=== PATIENT | male | born 1960 | race Asian ===

== ENCOUNTER 2019-05-27 17:43 | Emergency (ER) | payer BC, OTHER ==
[2019-05-27 17:51] VITALS: BP 136/87; PULSE 86; TEMP 97.7; BMI 32.1
--- NOTE | 2019-05-27 17:51 | PDOC ---
Rapid Medical Evaluation Time Seen by Provider: 05/27/19 17:46 Medical Evaluation: Allergies Allergy/AdvReac Type Severity Reaction Status Date / Time No Known Allergies Allergy Verified 07/04/13 18:29 05/27/19 17:49 I have performed a brief in-person evaluation of this patient. The patient presents with a chief complaint of: Pt is a 58 y/o male with L calf pain and swelling since yesterday. Pt travelled 15 hours yesterday on the plane. Saw his primary and was advised to come to the ED for a doppler. The patient has a history of DM, cardiac disease with previous [place] 10 years ago and is on ASA but no other anticoagulation. Pertinent physical exam findings: stable. Mild left calf tenderness to p alpation. Unable to palpate pulses in triage. Warm skin distally. Brisk capillary refill distally. I have ordered the following: Duplex LLE ordered The patient will proceed to the ED for further evaluation Discharge Disposition - Diagnosis Pain of left calf - Referrals - Patient Instructions - Post Discharge Activity
--- NOTE | 2019-05-27 19:47 | PDOC ---
History of Present Illness - General Chief Complaint: Edema Stated Complaint: SWOLLEN LEG Time Seen by Provider: 05/27/19 17:46 History Source: Patient Exam Limitations: No Limitations Past History - Travel Traveled outside of the country in the last 30 days: No Close contact w/someone who was outside of country & ill: No - Past Medical History Allergies/Adverse Reactions: Allergies Allergy/AdvReac Type Severity Reaction Status Date / Time No Known Allergies Allergy Verified 07/04/13 18:29 Home Medications: Ambulatory Orders Aspirin [ASA -] 81 mg PO DAILY 07/04/13 Glipizide mg PO DAILY 07/04/13 Losartan Potassium [Cozaar] mg PO DAILY 07/04/13 Metoprolol Tartrate [Lopressor -] 25 mg PO DAILY 07/04/13 Pravastatin Sodium [Pravachol -] mg PO HS 07/04/13 levoFLOXacin [Levaquin -] 750 mg PO DAILY #7 tablet 07/04/13 metFORMIN HCL [Glucophage -] 1,000 mg PO BID 07/04/13 COPD: No Diabetes: Yes HTN: Yes - Immunization History Immunization Up to Date: No - Psycho Social/Smoking Cessation Hx Smoking History: Never smoked Have you smoked in the past 12 months: No Information on smoking cessation initiated: No Hx Alcohol Use: No Drug/Substance Use Hx: No Substance Use Type: None Review of Systems - Review of Systems Able to Perform ROS?: Yes Comments:: 05/27/19 19:40 CONSTITUTIONAL: Absent: fever, chills, diaphoresis, generalized weakness, malaise, loss of appetite HEENT: Absent: rhinorrhea, nasal congestion, throat pain, throat swelling, difficulty swallowing, mouth swelling, ear pain, eye pain, visual Changes CARDIOVASCULAR: Absent: chest pain, loss of consciousness, palpitations, irregular heart rate, peripheral edema RESPIRATORY: Absent: cough, shortness of breath, dyspnea with exertion, orthopnea, wheezing, stridor, hemoptysis GASTROINTESTINAL: Absent: abdominal pain, abdominal distension, nausea, vomiting, diarrhea, constipation, melena, hematochezia GENITOURINARY: Absent: dysuria, frequency, urgency, hesitancy, hematuria, flank pain, genital pain MUSCULOSKELETAL: Present: Left calf pain absent: myalgia, arthralgia, joint swelling SKIN: Absent: rash, itching, pallor HEMATOLOGIC/IMMUNOLOGIC: Absent: easy bleeding, easy bruising, lymphadenopathy, frequent infections ENDOCRINE: Absent: unexplained weight gain, unexplained weight loss, heat intolerance, cold intolerance NEUROLOGIC: Absent: headache, focal weakness or paresthesias, dizziness, unsteady gait, seizure, mental status changes, bladder or bowel incontinence PSYCHIATRIC: Absent: anxiety, depression, suicidal or homicidal ideation, hallucinations. Is the patient limited [place] proficient: No *Physical Exam - Vital Signs Last Vital Signs Temp Pulse Resp BP Pulse Ox 97.7 F 86 16 136/87 96 05/27/19 17:49 05/27/19 17:49 05/27/19 17:49 05/27/19 17:49 05/27/19 17:49 - Physical Exam 05/27/19 19:41 GENERAL: Well developed, well nourished. Awake and alert. No acute distress. HEENT: Normocephalic, atraumatic. PERRLA, EOMI. No conjunctival pallor. Sclera are non- icteric. Moist mucous membranes. Oropharynx is clear. NECK: Supple. Full ROM. No JVD. Carotid pulses 2+ and symmetric, without bruits. No thyromegaly. No lymphadenopathy. CARDIOVASCULAR: Regular rate and rhythm. No murmurs, rubs, or gallops. Distal pulses are 2+ and symmetric. PULMONARY: No evidence of respiratory distress. Lungs clear to auscultation bilaterally. No wheezing, rales or rhonchi. ABDOMINAL: Soft. Non-tender. Non-distended. No rebound or guarding. No organomegaly. Normoactive bowel sounds. MUSCULOSKELETAL Normal range of motion at all joints. No bony deformities or tenderness. No CVA tenderness. EXTREMITIES: No cyanosis. No clubbing. (+) 1 pitting edema on the left. (+) l calf tenderness. SKIN: Warm and dry. Normal capillary refill. No rashes. No jaundice. NEUROLOGICAL: Alert, awake, appropriate. Cranial nerves 2-12 intact. No deficits to light touch and temperature in face, upper extremities and lower extremities. No motor deficits in the in face, upper extremities and lower extremities. Normoreflexic in the upper and lower extremities. Normal speech. Toes are down-going bilaterally. Gait is normal without ataxia. PSYCHIATRIC: Cooperative. Good eye contact. Appropriate mood and affect. Medical Decision Making - Medical Decision Making 05/27/19 19:41 Patient is a 58-year-old male with past medical history of CAD status post [place] with stenting 10 years ago, type 2 diabetes presents to the ER today for left calf pain. States he was on a 15-hour flight yesterday. When he came back he noticed some swelling and pain in his calf. He states it feels like a cramping sensation. He went to see his primary care doctor today who recommended he come to the ER to rule out DVT. Denies chest pain, difficulty breathing, shortness of breath, dyspnea on exertion, orthopnea. A/P: Calf pain On exam there is some mild tenderness to the left posterior calf. 1+ pitting edema to the left foot. Duplex ultrasound of the left leg shows no DVTs at this time. We will discharge home to have the patient follow-up with his primary care doctor and [employer] worker as scheduled tomorrow. Return precautions given. I discussed the physical exam findings, ancillary test results and final diagnoses with the patient. I answered all of the patient's questions. The patient was satisfied with the care received and felt comfortable with the discharge plan and treatment plan. The Patient agrees to follow up with the primary care physician/specialist within 24-72 hours. Return precautions were given. Discharge - Discharge Information Problems reviewed: Yes Clinical Impression/Diagnosis: Pain of left calf Condition: Stable - Follow up/Referral Referrals: Silvia Kimble DO [Primary Care Provider] - - Patient Discharge Instructions Patient Printed Discharge Instructions: DI for Leg Pain Additional Instructions: You were evaluated for your leg pain today. Your ultrasound did not show any evidence of blood clots. You have been given a copy of the report. Please keep your leg elevated at rest to help reduce the swelling. You may wear compression stockings to also help with the swelling. Please follow-up with your primary care doctor and your roll[employer] worker as scheduled for tomorrow. Return to the ER for increased pain, redness, fever, difficulty breathing, shortness of breath or if you have any changes in your symptoms. - Post Discharge Activity Work/Back to School Note: Back to Work
== END 2019-05-27 19:51 | disposition home or self-care (01) ==
LOC: JERFT 17:43 → JER 17:43 → JERFT 19:51
DX: M79.662 Pain in left lower leg (principal); I25.10 Atherosclerotic heart disease of native coronary artery without angina pectoris; I10 Essential (primary) hypertension; Z95.5 Presence of coronary angioplasty implant and graft; I25.2 Old myocardial infarction; E11.9 Type 2 diabetes mellitus without complications; Z79.84 Long term (current) use of oral hypoglycemic drugs; Z79.82 Long term (current) use of aspirin
CPT/HCPCS: 93971-TC; 99284-25